=== PATIENT | female | born 1945 | race Caucasian/White ===

== ENCOUNTER 2023-03-18 12:00 | Outpatient (RCR) | payer MEDICARE, SELFPAY | END 2023-03-18 23:59 | disposition home or self-care (01) | LOC: ROT 12:00 | PROVIDERS: ATTENDING PHYSICIAN Family Medicine | DX: M79.642 Pain in left hand (principal); M79.641 Pain in right hand | CPT/HCPCS: 97010; 97110; 97140; 97535 ==

== ENCOUNTER 2023-04-28 12:07 | Outpatient (RCR) | payer MEDICARE, SELFPAY | END 2023-04-28 23:59 | disposition home or self-care (01) | LOC: ROT 12:07 | PROVIDERS: ATTENDING PHYSICIAN Family Medicine | DX: M19.041 Primary osteoarthritis, right hand (principal); M19.042 Primary osteoarthritis, left hand; M79.641 Pain in right hand; M79.642 Pain in left hand; Z73.6 Limitation of activities due to disability | CPT/HCPCS: 97010; 97140; 97535 ==

== ENCOUNTER 2023-05-05 15:16 | Outpatient (RCR) | payer SELFPAY | END 2023-05-05 23:59 | disposition home or self-care (01) | LOC: ROT 15:16 | PROVIDERS: ATTENDING PHYSICIAN Family Medicine | DX: G20.A1 Parkinson's disease without dyskinesia, without mention of fluctuations (principal) ==

== ENCOUNTER → 2023-05-24 13:51 | Outpatient (REF) | payer MEDICARE, SELFPAY | LOC: HWRAD 13:51 | PROVIDERS: ATTENDING PHYSICIAN Specialist; FAMILY PHYSICIAN Family Medicine | DX: G91.2 (Idiopathic) normal pressure hydrocephalus (principal) | CPT/HCPCS: 70450 ==

== ENCOUNTER 2023-05-27 14:27 | Outpatient (RCR) | payer SELFPAY | END 2023-05-27 23:59 | disposition home or self-care (01) | LOC: ROT 14:27 | PROVIDERS: ATTENDING PHYSICIAN Specialist; FAMILY PHYSICIAN Family Medicine | DX: Z02.4 Encounter for examination for driving license (principal) ==

== ENCOUNTER 2023-07-01 09:05 | Outpatient (RCR) | payer SELFPAY | END 2023-07-01 23:59 | disposition home or self-care (01) | LOC: ROT 09:05 | PROVIDERS: ATTENDING PHYSICIAN Family Medicine | DX: G20.A1 Parkinson's disease without dyskinesia, without mention of fluctuations (principal) ==

== ENCOUNTER → 2023-08-27 07:47 | Outpatient (REF) | payer MEDICARE, SELFPAY | LOC: RAD 07:47 | PROVIDERS: ATTENDING PHYSICIAN Family Medicine | DX: R10.11 Right upper quadrant pain (principal) | CPT/HCPCS: 76700 ==

== ENCOUNTER 2023-09-02 08:04 | Outpatient (RCR) | payer SELFPAY | END 2023-09-02 23:59 | disposition home or self-care (01) | LOC: ROT 08:04 | PROVIDERS: ATTENDING PHYSICIAN Family Medicine | DX: G20.C Parkinsonism, unspecified (principal); Z73.6 Limitation of activities due to disability ==

== ENCOUNTER 2023-10-21 07:36 | Outpatient (RCR) | payer SELFPAY | END 2023-10-21 23:59 | disposition home or self-care (01) | LOC: ROT 07:36 | PROVIDERS: ATTENDING PHYSICIAN Family Medicine | DX: G20.A1 Parkinson's disease without dyskinesia, without mention of fluctuations (principal) ==

== ENCOUNTER 2023-12-16 06:12 | Outpatient (RCR) | payer SELFPAY | END 2023-12-16 23:59 | disposition home or self-care (01) | LOC: ROT 06:12 | PROVIDERS: ATTENDING PHYSICIAN Family Medicine | DX: G20.A1 Parkinson's disease without dyskinesia, without mention of fluctuations (principal) ==

== ENCOUNTER 2024-02-03 06:36 | Outpatient (RCR) | payer SELFPAY | END 2024-02-03 23:59 | disposition home or self-care (01) | LOC: RPT 06:36 | PROVIDERS: ATTENDING PHYSICIAN Family Medicine | DX: G20.C Parkinsonism, unspecified (principal); Z73.6 Limitation of activities due to disability; R26.89 Other abnormalities of gait and mobility ==

== ENCOUNTER 2024-03-10 14:03 | Outpatient (RCR) | payer MEDICARE, SELFPAY | END 2024-03-10 23:59 | disposition home or self-care (01) | LOC: RPT 14:03 | PROVIDERS: ATTENDING PHYSICIAN Orthopaedic Surgery; FAMILY PHYSICIAN Family Medicine | DX: M75.42 Impingement syndrome of left shoulder (principal); M46.04 Spinal enthesopathy, thoracic region; Z73.6 Limitation of activities due to disability; M62.81 Muscle weakness (generalized) | CPT/HCPCS: 97010; 97110; 97112; 97140; 97162 ==

== ENCOUNTER 2024-03-27 13:04 | Outpatient (RCR) | payer MEDICARE, SELFPAY | END 2024-03-27 23:59 | disposition home or self-care (01) | LOC: RPT 13:04 | PROVIDERS: ATTENDING PHYSICIAN Orthopaedic Surgery; FAMILY PHYSICIAN Family Medicine | DX: M75.42 Impingement syndrome of left shoulder (principal); M46.04 Spinal enthesopathy, thoracic region; Z73.6 Limitation of activities due to disability; M75.52 Bursitis of left shoulder; M62.81 Muscle weakness (generalized); M54.50 Low back pain, unspecified | CPT/HCPCS: 97010; 97110; 97112; 97140 ==

== ENCOUNTER 2024-04-10 11:15 | Outpatient (RCR) | payer SELFPAY | END 2024-04-10 23:59 | disposition home or self-care (01) | LOC: ROT 11:15 | PROVIDERS: ATTENDING PHYSICIAN Family Medicine | DX: M75.42 Impingement syndrome of left shoulder (principal); M75.52 Bursitis of left shoulder; M46.04 Spinal enthesopathy, thoracic region; Z73.6 Limitation of activities due to disability; G91.9 Hydrocephalus, unspecified ==

== ENCOUNTER 2024-05-08 10:14 | Outpatient (RCR) | payer MEDICARE, SELFPAY | END 2024-05-08 23:59 | disposition home or self-care (01) | LOC: RPT 10:14 | PROVIDERS: ATTENDING PHYSICIAN Family Medicine | DX: R32 Unspecified urinary incontinence (principal); Z73.6 Limitation of activities due to disability; M62.81 Muscle weakness (generalized); G91.2 (Idiopathic) normal pressure hydrocephalus | CPT/HCPCS: 97161; 97530 ==

== ENCOUNTER 2024-05-25 07:35 | Outpatient (RCR) | payer SELFPAY | END 2024-05-29 12:56 | disposition home or self-care (01) | LOC: ROT 07:35 | PROVIDERS: ATTENDING PHYSICIAN Family Medicine | DX: G20.A1 Parkinson's disease without dyskinesia, without mention of fluctuations (principal) ==

== ENCOUNTER 2024-06-07 12:37 | Outpatient (RCR) | payer MEDICARE, SELFPAY | END 2024-06-07 23:59 | disposition home or self-care (01) | LOC: RPT 12:37 | PROVIDERS: ATTENDING PHYSICIAN Family Medicine | DX: R32 Unspecified urinary incontinence (principal); Z73.6 Limitation of activities due to disability; M62.81 Muscle weakness (generalized); G91.2 (Idiopathic) normal pressure hydrocephalus | CPT/HCPCS: 97110; 97112; 97530 ==

== ENCOUNTER 2024-06-08 06:26 | Outpatient (RCR) | payer MEDICARE, SELFPAY | END 2024-06-08 23:59 | disposition home or self-care (01) | LOC: RPT 06:26 | PROVIDERS: ATTENDING PHYSICIAN Orthopaedic Surgery; FAMILY PHYSICIAN Family Medicine | DX: M25.512 Pain in left shoulder (principal); Z73.6 Limitation of activities due to disability | CPT/HCPCS: 97110; 97162 ==

== ENCOUNTER 2024-06-14 13:23 | Outpatient (RCR) | payer MEDICARE, SELFPAY | END 2024-06-14 23:59 | disposition home or self-care (01) | LOC: RPT 13:23 | PROVIDERS: ATTENDING PHYSICIAN Family Medicine | DX: R32 Unspecified urinary incontinence (principal); Z73.6 Limitation of activities due to disability; M62.81 Muscle weakness (generalized); G91.2 (Idiopathic) normal pressure hydrocephalus | CPT/HCPCS: 97110; 97112 ==

== ENCOUNTER 2024-07-06 12:00 | Outpatient (RCR) | payer MEDICARE, SELFPAY | END 2024-07-06 23:59 | disposition home or self-care (01) | LOC: RPT 12:00 | PROVIDERS: ATTENDING PHYSICIAN Orthopaedic Surgery; FAMILY PHYSICIAN Family Medicine | DX: M25.512 Pain in left shoulder (principal); Z73.6 Limitation of activities due to disability; M62.81 Muscle weakness (generalized); S46.812D Strain of other muscles, fascia and tendons at shoulder and upper arm level, left arm, subsequent encounter | CPT/HCPCS: 97010; 97110 ==

== ENCOUNTER 2024-07-13 06:37 | Outpatient (RCR) | payer SELFPAY | END 2024-08-07 06:48 | disposition home or self-care (01) | LOC: ROT 06:37 | PROVIDERS: ATTENDING PHYSICIAN Family Medicine | DX: G20.A1 Parkinson's disease without dyskinesia, without mention of fluctuations (principal) ==

== ENCOUNTER 2024-08-04 13:08 | Outpatient (RCR) | payer MEDICARE, SELFPAY | END 2024-08-04 23:59 | disposition home or self-care (01) | LOC: RPT 13:08 | PROVIDERS: ATTENDING PHYSICIAN Orthopaedic Surgery; FAMILY PHYSICIAN Family Medicine | DX: M25.512 Pain in left shoulder (principal); Z73.6 Limitation of activities due to disability; M62.81 Muscle weakness (generalized); S46.812D Strain of other muscles, fascia and tendons at shoulder and upper arm level, left arm, subsequent encounter | CPT/HCPCS: 97010; 97110 ==

== ENCOUNTER 2024-08-17 11:17 | Outpatient (RCR) | payer MEDICARE, SELFPAY | END 2024-08-17 23:59 | disposition home or self-care (01) | LOC: RPT 11:17 | PROVIDERS: ATTENDING PHYSICIAN Family Medicine | DX: R32 Unspecified urinary incontinence (principal); Z73.6 Limitation of activities due to disability; M62.81 Muscle weakness (generalized); G91.2 (Idiopathic) normal pressure hydrocephalus | CPT/HCPCS: 97110; 97112 ==

== ENCOUNTER 2024-08-24 12:22 | Outpatient (RCR) | payer MEDICARE, SELFPAY | END 2024-08-24 23:59 | disposition home or self-care (01) | LOC: RPT 12:22 | PROVIDERS: ATTENDING PHYSICIAN Orthopaedic Surgery; FAMILY PHYSICIAN Family Medicine | DX: M25.512 Pain in left shoulder (principal); Z73.6 Limitation of activities due to disability; M62.81 Muscle weakness (generalized); S46.812D Strain of other muscles, fascia and tendons at shoulder and upper arm level, left arm, subsequent encounter | CPT/HCPCS: 97010; 97110 ==

== ENCOUNTER 2024-09-08 12:57 | Outpatient (RCR) | payer SELFPAY | END 2024-09-08 23:59 | disposition home or self-care (01) | LOC: ROT 12:57 | PROVIDERS: ATTENDING PHYSICIAN Family Medicine | DX: G20.A1 Parkinson's disease without dyskinesia, without mention of fluctuations (principal) ==

== ENCOUNTER 2024-09-13 14:14 | Outpatient (RCR) | payer MEDICARE, SELFPAY | END 2024-09-13 23:59 | disposition home or self-care (01) | LOC: RPT 14:14 | PROVIDERS: ATTENDING PHYSICIAN Family Medicine | DX: R32 Unspecified urinary incontinence (principal); Z73.6 Limitation of activities due to disability; M62.81 Muscle weakness (generalized); G91.2 (Idiopathic) normal pressure hydrocephalus | CPT/HCPCS: 97110; 97112 ==

== ENCOUNTER 2024-10-19 08:38 | Outpatient (RCR) | payer MEDICARE, SELFPAY | END 2024-10-19 23:59 | disposition home or self-care (01) | LOC: ROT 08:38 | PROVIDERS: ATTENDING PHYSICIAN Family Medicine | DX: G20.A1 Parkinson's disease without dyskinesia, without mention of fluctuations (principal) ==

== ENCOUNTER 2024-12-07 07:39 | Outpatient (RCR) | payer SELFPAY | END 2024-12-07 23:59 | disposition home or self-care (01) | LOC: RPT 07:39 | PROVIDERS: ATTENDING PHYSICIAN Family Medicine | DX: G20.A1 Parkinson's disease without dyskinesia, without mention of fluctuations (principal) ==